=== PATIENT | male | born 1965 | race Caucasian/White ===

== ENCOUNTER 2022-10-29 20:30 | Emergency (ER) | payer BC ==
[2022-10-29] MEDS ORDERED: Acetaminophen/oxyCODONE 325-5 MG Tab PO ONE (20:56)
== END 2022-10-29 21:40 | disposition home or self-care (01) ==
LOC: DL.ED 20:30
DX: S22.32XA Fracture of one rib, left side, initial encounter for closed fracture (principal); W19.XXXA Unspecified fall, initial encounter; Z88.8 Allergy status to other drugs, medicaments and biological substances
CPT/HCPCS: 71101; 99282; 99283; A9270